=== PATIENT | female | born 1985 | race Caucasian/White ===

== ENCOUNTER → 2016-09-02 | Outpatient (CLI) | payer BC ==
[~2016-09-02] MED LIST: CALC500T3 PO; CETI10TA17 PO; CHOL10003 PO; CHOL500049 PO; CNC1KV IJ; CODE-54 PO; CYAN500T44 PO; CYCL10TA9 PO; HYDR-3812 PO; IBP600T1 PO; LEVO125T6 PO; LEVO5TAB12 PO; LORA10TA72 PO; MAGN400C PO; METF-478 PO; METF500T4 PO; PREN-115 PO; SERT50TA2 PO; SPIR50TA2 PO; THYR97.5 PO
--- NOTE | 2016-09-02 12:00 | Diagnostic Imaging Report ---
PROCEDURE: US Thyroid. TECHNIQUE: Multiple real-time grayscale images were obtained of the thyroid in various projections. INDICATION: Followup thyroid nodule. COMPARISON: 12/23/2015. FINDINGS: The right thyroid lobe is 4.3 x 1.3 x 1.8 cm. The left lobe is 4.3 x 1.3 x 1.7 cm. In the inferior aspect of the right lobe, there is a 1.2 cm hypoechoic solid nodule seen with increased internal vascularity. It is slightly larger compared to the previous exam. Other tiny colloid cysts and a small nodule in the isthmus measuring 0.7 cm seen. IMPRESSION: 1.2 cm nodule in the lower aspect of the right thyroid lobe has enlarged compared to the prior exam. There is a new nodule in the thyroid isthmus also seen measuring 0.6 cm. The findings are likely secondary to multinodular goiter. Followup exams recommended. Dictated by: Dictated on workstation # [id number]
== END ==
LOC: RAD 10:20
PROVIDERS: ATTEND Surgery
DX: E04.1 Nontoxic single thyroid nodule (principal)
CPT/HCPCS: 76536

== ENCOUNTER → 2016-09-15 | Outpatient (CLI) | payer BC ==
[~2016-09-15] VITALS: Ht 160 cm; Wt 94.3 kg
[~2016-09-15] MED LIST changes: +LIDOCAINE 1% INJ 20 ML (XYLOCAINE) VIAL INJ ONE; +LIDOCAINE 1% INJ 20 ML (XYLOCAINE) VIAL ONE
--- NOTE | 2016-09-15 10:22 | Diagnostic Imaging Report ---
EXAMINATION: US-guided fine needle biopsy-thyroid. INDICATION: Right thyroid nodule. CONSENT: Informed consent was obtained from the patient. The risks, benefits, potential complications and alternatives were reviewed and all questions answered to the patient's satisfaction. FINDINGS: 1.2 cm right thyroid nodule enlarged from prior exams. PROCEDURE: After sterile preparation and draping, 1% lidocaine was utilized for local anesthesia. A 25-gauge hypodermic needle is introduced into the right thyroid nodule under live ultrasound guidance. After confirming adequate positioning with saved ultrasound images, multiple passes of fine needle aspiration is performed and repeated 5 times. The patient tolerated the procedure well with no immediate complications. IMPRESSION: Successful US-guided fine needle aspiration biopsy of right thyroid nodule. Dictated by: Dictated on workstation # [id number]
== END ==
LOC: RAD 08:40
PROVIDERS: ATTEND Surgery
DX: E04.1 Nontoxic single thyroid nodule (principal)
CPT/HCPCS: 76942; 88305

== ENCOUNTER 2016-10-21 09:00 | Outpatient (CLI) | payer BC ==
[~2016-10-21] VITALS: Ht 160 cm; Wt 97.5 kg
[~2016-10-21 09:00] MED LIST changes: -CALC500T3 PO; -CETI10TA17 PO; -CHOL500049 PO; -CNC1KV IJ; -CYCL10TA9 PO; -HYDR-3812 PO; -LEVO125T6 PO; -LEVO5TAB12 PO; -LIDOCAINE 1% INJ 20 ML (XYLOCAINE) VIAL INJ ONE; -LIDOCAINE 1% INJ 20 ML (XYLOCAINE) VIAL ONE; -LORA10TA72 PO; -METF-478 PO; -METF500T4 PO; -SERT50TA2 PO; -SPIR50TA2 PO; -THYR97.5 PO
[2016-10-22] MEDS ORDERED: THYR97.5 PO (09:56)
[2016-10-22] MEDS ORDERED: SPIR50TA2 PO (09:56)
[2016-10-22] MEDS ORDERED: CHOL500049 PO (09:56)
[2016-10-22] MEDS ORDERED: LEVO5TAB12 PO (09:56)
[2016-10-22] MEDS ORDERED: CETI10TA17 PO (09:56)
[2016-10-22] MEDS ORDERED: CYCL10TA9 PO (09:56)
[2016-10-22] MEDS ORDERED: SERT50TA2 PO (09:56)
[2016-10-22] MEDS ORDERED: CNC1KV IJ (09:56)
[2016-10-22] MEDS ORDERED: LORA10TA72 PO (09:56)
[2016-10-22] MEDS ORDERED: METF500T4 PO (09:56)
== END 2016-10-21 16:00 ==
LOC: PREOP 09:00
PROVIDERS: ATTEND Surgery
DX: Z01.818 Encounter for other preprocedural examination (principal); E04.1 Nontoxic single thyroid nodule

== ENCOUNTER 2016-10-27 06:11 | Day surgery (SDC) | payer BC ==
--- NOTE | 2016-10-26 08:32 | History & Physicial ---
History of Present Illness History of Present Illness Reason for visit/HPI patient with bilateral thyroid nodules, dominant left nodule measuring 12 mm, confirmed to have atypia on needle aspiration cytology. Therefore, she is here to undergo total thyroidectomy, to establish a definitive diagnosis Date of Admission 10/27/16 I consulted on this patient on 10/26/16 08:26 Attending Physician Tesfaye Sterling MD Admitting Physician Alden Martinez DO Consult Allergies and Home Medications Allergies Coded Allergies: latex (Verified Allergy, Mild, 10/22/16) Swelling Home Medications Cetirizine HCl 10 Mg Tablet 10 MG PO DAILY (Reported) Cholecalciferol (Vitamin D3) 50,000 Unit Capsule 50,000 UNIT PO Q TUESDAY ( Reported) Cyanocobalamin 1,000 Mcg/Ml Inj 1,000 MCG IJ WEEKLY (Reported) Cyclobenzaprine HCl 10 Mg Tablet 10 MG PO DAILY (Reported) Levocetirizine Dihydrochloride 5 Mg Tablet 5 MG PO DAILY (Reported) Loratadine 10 Mg Tab.rapdis 10 MG PO DAILY (Reported) Metformin HCl 500 Mg Tablet 500 MG PO DAILY (Reported) Sertraline HCl 50 Mg Tablet 50 MG PO DAILY (Reported) Spironolactone 50 Mg Tablet 50 MG PO DAILY (Reported) Thyroid,Pork 97.5 Mg Tablet 97.5 MG PO DAILY (Reported) Past Ztglpzg-Ncqyiu-Amhcok Hx Patient Social History Marrital Status: Employed/Student: employed Smoking Status: Never a Smoker Immunizations Up To Date Tetanus Booster (TDap): More than 5yrs Date of Pneumonia Vaccine: Aug 23, 2012 Date of Influenza Vaccine: December 20, 2012 Surgeries HX Surgeries: Yes Surgeries: Appendectomy Respiratory Hx Respiratory Disorders: No Cardiovascular Hx Cardiovascular Disorders: No Neurological Hx Neurological Disorders: No Reproductive System Hx Reproductive Disorders: Yes (PCOS 2007) Sexually Transmitted Disease: No HIV/AIDS: No Female Reproductive Disorders: Polycystic Ovarian Dis Genitourinary Hx Genitourinary Disorders: No Gastrointestinal Hx Gastrointestinal Disorders: No Musculoskeletal Hx Musculoskeletal Disorders: No Endocrine Hx Endocrine Disorders: Yes HEENT HX ENT Disorders: No Cancer Hx Cancer: No Psychosocial Hx Psychiatric Problems: No Integumentary HX Skin/Integumentary Disorder: No Blood Transfusions Hx Blood Disorders: No Adverse Reaction to a Blood Tr: No Family Medical History Significant Family History: Diabetes, Hypertension Family Hx: Hypertension No Family History of: Diabetes mellitus Constitutional: no symptoms reported EENTM: no symptoms reported Respiratory: no symptoms reported Cardiovascular: no symptoms reported Gastrointestinal: see HPI Genitourinary: no symptoms reported Musculoskeletal: no symptoms reported Skin: no symptoms reported Psychiatric/Neurological: No Symptoms Reported Physical Exam Vital Signs Capillary Refill : General Appearance: No Apparent Distress HEENT: TMs Normal Neck: Normal Inspection Respiratory: Lungs Clear Gastrointestinal: Non Tender Soft Extremity: Normal Inspection Neurologic/Psychiatric: Alert Oriented x3 Skin: Warm/Dry Comments thyroid nodule is not palpable. No cervical adenopathy Assessment/Plan Assessment and Plan lady with bilateral thyroid nodules. Dominant left nodule measuring 12 mm. Atypical cytology. Discussed total thyroidectomy with monitoring of the recurrent laryngeal nerve. Expected recovery, postoperative hypocalcemia, transient hoarseness of voice, hematoma etc. discussed. Requirement for postoperative thyroxine replacement discussed. All questions answered and willing to proceed with surgery. Admission Diagnosis bilateral thyroid nodules. Atypical cytology of left thyroid nodule TESFAYE STERLING MD Oct 26, 2016 8:32 am
[~2016-10-27] VITALS: Ht 160 cm; Wt 97.5 kg
[~2016-10-27 06:11] MED LIST changes: +CETI10TA17 PO; +CHOL500049 PO; +CNC1KV IJ; +CYCL10TA9 PO; +LEVO5TAB12 PO; +LORA10TA72 PO; +METF500T4 PO; +SERT50TA2 PO; +SPIR50TA2 PO; +THYR97.5 PO
[2016-10-27] MEDS ORDERED: ceFAZolin 2 GM/50 ML NS 50 ML IV ONE (06:23)
[2016-10-27] MEDS: LACTATED RINGERS 1,000 ML IV PRN ×2 (06:30→09:15)
[2016-10-27 06:55] VITALS: BP 128/84
[2016-10-27 06:55] LABS: MEAN PLATELET VOLUME 10.7 FL (7.4-10.4); RED BLOOD COUNT 4.89 10^6/uL (4.35-5.85); RED CELL DISTRIBUTION WIDTH 12.7 % (10.0-14.5); WHITE BLOOD COUNT 7.3 10^3/uL (4.3-11.0)
[2016-10-27] MEDS ORDERED: CATHETER FLUSH 10 ML SYR IV PRN (07:00)
[2016-10-27] MEDS ORDERED: ceFAZolin 2 GM/NS 50 ML IV ONE (07:00)
[2016-10-27] MEDS ORDERED: LACTATED RINGERS 1,000 ML IV ONE ×2 (07:04→09:26)
[2016-10-27] MEDS ORDERED: LIDOCAINE PF 2% 10 ML (XYLOCAINE) AMP ONE (07:04)
[2016-10-27] MEDS ORDERED: ROCURONIUM 50 MG/5 ML (ZEMURON) VIAL IV ONE (07:04)
[2016-10-27] MEDS ORDERED: proPOfol 200 MG/20 ML (DIPRIVAN) VIAL IV ONE (07:04)
[2016-10-27] MEDS ORDERED: DEXAMETHASONE PF 10 MG/ML (DECADRON) VIAL ONE (07:04)
[2016-10-27] MEDS ORDERED: SUCCINYLCHOLINE INJ 100 MG/5 ML SYR ONE (07:04)
[2016-10-27] MEDS ORDERED: SEVOFLURANE (ULTANE) 15 ML INHAL SOLN ONE ×3 (07:04→10:02)
[2016-10-27] MEDS ORDERED: ONDANSETRON 4 MG/2 ML (SDV) Z0FRAN ONE (07:04)
[2016-10-27] MEDS ORDERED: MIDAZOLAM 2 MG/2 ML (VERSED) VIAL ONE (07:05)
[2016-10-27] MEDS ORDERED: fentaNYL INJECTION 250 MCG/5 ML AMP ONE (07:05)
[2016-10-27] MEDS ORDERED: BUP/EPI 0.25% 1:200,000 (MARCAINE) 30 ML VIAL ONE (07:07)
[2016-10-27] MEDS ORDERED: THROMBIN SPRAY KIT 5,000 UNIT VIAL ONE (07:07)
[2016-10-27] MEDS ORDERED: MIDAZOLAM 2 MG/2 ML (VERSED) VIAL IV ONE (07:30)
[2016-10-27 07:36] LABS: ANION GAP 12 MMOL/L (5-14); BLOOD UREA NITROGEN 11 MG/DL (7-18); BUN/CREATININE RATIO 14; CALCIUM 9.1 MG/DL (8.5-10.1); CARBON DIOXIDE 19 MMOL/L (21-32); CHLORIDE 106 MMOL/L (98-107); CREATININE SERUM 0.77 MG/DL (0.60-1.30); GFR ESTIMATED > 60; GLUCOSE 105 MG/DL (70-105); POTASSIUM 4.2 MMOL/L (3.6-5.0); SODIUM 137 MMOL/L (135-145)
--- NOTE | 2016-10-27 07:50 | Progress Note-Pre Operative ---
Pre-Operative Progress Note H&P Reviewed The H&P was reviewed, patient examined and no changes noted. Date H&P Reviewed: Oct 27, 2016 Time H&P Reviewed: 07:50 Pre-Operative Diagnosis: Bilateral thyroid nodules with atypia TESFAYE STERLING MD Oct 27, 2016 7:50 am
[2016-10-27] MEDS ORDERED: LACTATED RINGERS 1,000 ML IV SCH (10:04)
--- NOTE | 2016-10-27 10:04 | Progress Note-Post Operative ---
Post-Operative Progess Note Pre-Operative Diagnosis Bilateral thyroid nodules with atypia Post-Operative Diagnosis SAME Post-Op Procedure Note Date of Procedure: Oct 27, 2016 Name of Procedure: total thyroidectomy Intraoperative nerve monitoring Anesthesia Type Gen. Estimated blood loss (mL): 25 mL Specimen(s) collected both lobes of the thyroid TESFAYE STERLING MD Oct 27, 2016 10:04 am
[2016-10-27] MEDS ORDERED: HYDR-3812 PO (10:07)
[2016-10-27] MEDS ORDERED: LEVO125T6 PO (10:08)
--- NOTE | 2016-10-27 10:09 | Discharge Inst-Simple/Standard ---
Discharge Inst-Standard Discharge Medications New, Converted or Re-Newed RX: RX on Chart Patient Instructions/Follow Up Plan of Care/Instructions/FU: dressings off and temperature follow-up in 3 weeks. Activity as Tolerated: Yes Discharge Diet: No Restrictions TESFAYE STERLING MD Oct 27, 2016 10:09 am
[2016-10-27] MEDS ORDERED: ONDANSETRON 4 MG/2 ML (SDV) Z0FRAN IVP PRN ×2 (10:15→10:30)
[2016-10-27] MEDS ORDERED: MEPERIDINE (DEMEROL) INJ 50 MG/ML IVP PRN (10:30)
[2016-10-27] MEDS ORDERED: morphine INJ 10 MG/ML 1ML (SYR OR VIAL) IVP PRN (10:30)
[2016-10-27] MEDS: fentaNYL INJECTION 100 MCG/2 ML AMP IVP PRN ×2 (11:53→13:33)
[2016-10-27 12:00] VITALS: BP 142/89
--- NOTE | 2016-10-27 14:41 | OPERATIVE REPORT ---
PROCEDURE PHYSICIAN: TESFAYE STERLING DATE OF PROCEDURE: 10/27/2016 PREOPERATIVE DIAGNOSIS: Bilateral thyroid nodules with atypia. POSTOPERATIVE DIAGNOSIS: Bilateral thyroid nodules with atypia. OPERATION: 1. Total thyroidectomy. 2. Intraoperative nerve monitoring. SURGEON: Donnell ANESTHESIA: General anesthesia. BLOOD LOSS: 25 cc FLUIDS: 1500 mL of crystalloids. TYPE OF WOUND: Type I (clean wound). INDICATION FOR THE PROCEDURE: This lady has been followed up regarding bilateral thyroid nodules with a dominant right thyroid nodule. Due to increase in the size of the right thyroid nodule, a needle biopsy was performed. It revealed atypia and therefore, it was felt reasonable to achieve definitive histologic diagnosis by way of total thyroidectomy. Intraoperative monitoring of the recurrent laryngeal nerve was also scheduled. An informed consent was obtained after reviewing the operative details and complications of postoperative hoarseness of voice, hypocalcemia and hematoma. DESCRIPTION OF PROCEDURE: She was placed supine on the operative table and general anesthesia induced using an endotracheal tube. 2 grams of Ancef were administered intravenously as prophylaxis against wound infection. Sequential compression devices were placed around her legs, to minimize the risk of venous flow. Her neck and upper chest were prepared and draped in the usual sterile manner. Preemptive analgesia was established using 0.25% Marcaine with epinephrine. A 4 cm transverse incision was made along the skin crease of the neck and platysma incised transversely. Flaps were raised superiorly to the level of the thyroid cartilage and inferiorly to the sternal notch. Cervical fascia was then incised vertically and the strap muscles were retracted laterally. I began the dissection on the left side. The lobe was retracted medially and both parathyroid glands were easily identified, being preserved with their blood supply. Recurrent laryngeal nerve was found by conventional visual inspection and intermittent nerve stimulation technique. Superior artery was then divided between 0 silk sutures, reinforced with a Ligaclip. The isthmus was then divided using harmonic scalpel. Branches of the inferior thyroid artery were controlled using a combination of Ligaclips and minimal use of Harmonic scalpel. Left lobe with the isthmus was then sent separately for histologic examination. On the right side a similar dissection was performed. There was a distinct middle thyroid vein, which was controlled using harmonic scalpel. Recurrent laryngeal nerve was found in its conventional position and protected using constant visual inspection and intermittent nerve stimulation technique. Both parathyroids were also identified and preserved along with their blood supply. The right lobe was then excised and sent separately for histologic examination. We had the anesthesiologist conduct Valsalva maneuver, looking for any venous bleeding. There was not any. Gelfoam, soaked in thrombin solution was then placed along the tracheoesophageal groove, to optimize hemostasis. Neck was then flexed in preparation for closure. Cervical fascia was approximated using 3-0 Vicryl and platysma using the same material. The skin was closed using 4-0 Vicryl, in a subcuticular fashion. She tolerated the procedure well, was extubated in the operating room and taken to the recovery room in a stable condition. Clyde, sponges, and instruments were correct at the end of the operation. Job ID: [id number] Dictated Date: 10/27/2016 10:00:05 Learning Center Coordinator Date: 10/27/2016 14:32:31 / negin ROPER
[2016-10-27] MEDS ORDERED: FLU TRIvalent (5 YOA+) 2016-17 (AFLURIA) 0.5 ML IM ONE (14:45)
[2016-10-27] MEDS: HYDROcodone/APAP 5 MG/325 MG (LORTAB) TAB PO PRN ×2 (15:55→20:04)
[2016-10-27 16:38] VITALS: BP 122/79
[2016-10-27 20:17] VITALS: BP 111/66
[2016-10-28] VITALS: BP 111/61
[2016-10-28] MEDS: HYDROcodone/APAP 5 MG/325 MG (LORTAB) TAB PO PRN ×2 (01:00→06:07)
[2016-10-28 04:00] VITALS: BP 103/63
[2016-10-28] MEDS ORDERED: LEVOTHYROXINE 125 MCG (LEVOTHROID) TABLET PO NR (06:00)
[2016-10-28] MEDS ORDERED: CALCIUM CARB + VIT D 600 MG (CALCARB + D) TAB PO SCH (07:00)
[2016-10-28 08:00] VITALS: BP 103/57
[2016-10-28] MEDS ORDERED: LEVO5TAB12 PO (08:36)
[2016-10-28] MEDS ORDERED: METF-478 PO (08:36)
[2016-10-28 09:57] LABS: ANION GAP 13 MMOL/L (5-14); BLOOD UREA NITROGEN 8 MG/DL (7-18); BUN/CREATININE RATIO 10; CALCIUM 8.1 MG/DL (8.5-10.1); CARBON DIOXIDE 26 MMOL/L (21-32); CHLORIDE 100 MMOL/L (98-107); GFR ESTIMATED > 60; GLUCOSE 147 MG/DL (70-105); POTASSIUM 3.6 MMOL/L (3.6-5.0); SODIUM 139 MMOL/L (135-145)
--- NOTE | 2016-10-28 12:02 | Progress Note-Standard ---
Standard Progress Note Progress Notes/Assess & Plan Progress/Assessment & Plan 10/28/16:seen earlier. Vital signs stable. Calcium 8.1 with no symptoms. Incision dry. Could be discharged home. Vocal cord function intact Final Diagnosis bilateral thyroid nodules with atypia TESFAYE STERLING MD Oct 28, 2016 12:02 pm
== END 2016-10-28 11:20 | disposition home or self-care (01) ==
LOC: SDC 06:11 → 4TH 11:50 → SDC 10-28 11:20
PROVIDERS: ATTEND Surgery
DX: E04.1 Nontoxic single thyroid nodule (principal)
CPT/HCPCS: 36415; 80048; 84703; 85027; 87081; 88307

== ENCOUNTER 2016-10-30 15:54 | Emergency (ER) | payer BC ==
[~2016-10-30] VITALS: Ht 160 cm; Wt 97.5 kg
[~2016-10-30 15:54] MED LIST changes: +HYDR-3812 PO; +LEVO125T6 PO; +METF-478 PO
--- NOTE | 2016-10-30 16:02 | ED General ---
General Stated Complaint: BODY TINGLING, LOW FEVER, STIFFNESS Source of Information: Patient Exam Limitations: No Limitations History of Present Illness Time Seen by Provider: 16:01 Initial Comments TO ER with c/o body stiffness, tingling all over. This began this morning. She is about 3 days post thyroidectomy by Dr Sterling and is concerned about hypocalcemia. No cough or shortness of breath or dysuria. She states that her fevers never got above 99. Timing/Duration: 4-6 Hours Severity: Moderate Associated Systoms: No Chest Pain, No Cough, No Diaphoresis, No Fever/Chills Allergies and Home Medications Allergies Coded Allergies: latex (Verified Allergy, Mild, 10/22/16) Swelling Home Medications Calcium Carbonate 500 Mg Tablet #60 1,000 MG PO Q6H Prescribed by: MERRILL VALENCIA on 10/30/16 1728 Cholecalciferol (Vitamin D3) 50,000 Unit Capsule 50,000 UNIT PO Q TUESDAY ( Reported) Cyanocobalamin 1,000 Mcg/Ml Inj 1,000 MCG IJ WEEKLY (Reported) Cyclobenzaprine HCl 10 Mg Tablet 10 MG PO HS (Reported) Hydrocodone/Acetaminophen 1 Each Tablet #30 1-2 TAB PO 4-6HR PRN PRN PAIN Prescribed by: TESFAYE STERLING on 10/27/16 1007 Levocetirizine Dihydrochloride 5 Mg Tablet 5 MG PO DAILY (Reported) Levothyroxine Sodium 125 Mcg Tablet #30 125 MCG PO DAILY Prescribed by: TESFAYE STERLING on 10/27/16 1008 Metformin HCl 500 Mg Tab.er.24 500 MG PO DAILY (Reported) Sertraline HCl 50 Mg Tablet 50 MG PO DAILY (Reported) Spironolactone 50 Mg Tablet 50-100 MG PO DAILY (Reported) TAKES 1-2 OF A (50 MG) TABLET Constitutional: see HPI EENTM: see HPI Respiratory: no symptoms reported Cardiovascular: no symptoms reported Genitourinary: no symptoms reported Musculoskeletal: see HPI other (stiffness) Skin: no symptoms reported Psychiatric/Neurological: See HPI Other (body tingling) Hematologic/Lymphatic: No Symptoms Reported Past Ivkzzcr-Lfugzv-Kxrpwz Hx Patient Social History Recent Foreign Travel: No Contact w/Someone Who Travel: No Recent Hopitalizations: No Immunizations Up To Date Tetanus Booster (TDap): More than 5yrs PED Vaccines UTD: Yes Date of Pneumonia Vaccine: Aug 23, 2012 Date of Influenza Vaccine: December 20, 2012 Seasonal Allergies Seasonal Allergies: Yes Surgeries HX Surgeries: Yes (BILAT CARPAL TUNNEL) Surgeries: Appendectomy Respiratory Hx Respiratory Disorders: No Cardiovascular Hx Cardiac Disorders: No Neurological Hx Neurological Disorders: Yes Neurological Disorders: Headaches /Migraines Reproductive System Hx Reproductive Disorders: No Sexually Transmitted Disease: No HIV/AIDS: No Female Reproductive Disorders: Polycystic Ovarian Dis Genitourinary Hx Genitourinary Disorders: No Gastrointestinal Hx Gastrointestinal Disorders: No Musculoskeletal Hx Musculoskeletal Disorders: No Endocrine Hx Endocrine Disorders: Yes HEENT HX ENT Disorders: No Loss of Vision: Denies Hearing Impairment: Denies Cancer Hx Cancer: No Psychosocial Hx Psychiatric Problems: No Integumentary HX Skin/Integumentary Disorder: No Blood Transfusions Hx Blood Disorders: No Adverse Reaction to a Blood Tr: No (N/A) Family Medical History Significant Family History: Diabetes, Hypertension Family Medial History: Hypertension No Family History of: Diabetes mellitus Physical Exam Vital Signs Vital Sign - Last 12Hours 10/30/16 15:55 Temp 96.4 Pulse 109 Resp 18 B/P 130/92 Pulse Ox 97 Capillary Refill : General Appearance: No Apparent Distress WD/WN Eyes: Bilateral Eye EOMI, Bilateral Eye Normal Inspection, Bilateral Eye PERRL HEENT: PERRL/EOMI TMs Normal Neck: Full Range of Motion Normal Inspection Respiratory: Normal Breath Sounds No Accessory Muscle Use No Respiratory Distress Cardiovascular: Regular Rate, Rhythm Normal Peripheral Pulses Gastrointestinal: Normal Bowel Sounds Non Tender Soft Extremity: Normal Capillary Refill No Calf Tenderness Neurologic/Psychiatric: Alert Oriented x3 No Motor/Sensory Deficits Skin: Normal Color Warm/Dry Focused Exam Lactic Acid Level Laboratory Tests Test 10/30/16 16:20 10/30/16 16:47 Alanine Aminotransferase (ALT/SGPT) 53U/L (0-55) Albumin 4.0G/DL (3.2-4.5) Alkaline Phosphatase 60U/L (40-136) Anion Gap 12MMOL/L (5-14) Aspartate Amino Transf (AST/SGOT) 28U/L (5-34) BUN/Creatinine Ratio 13 Blood Urea Nitrogen 10MG/DL (7-18) Calcium Level 7.6MG/DL (8.5-10.1) L Carbon Dioxide Level 25MMOL/L (21-32) Chloride Level 102MMOL/L (98-107) Creatinine 0.77MG/DL (0.60-1.30) Estimat Glomerular Filtration Rate > 60 Free Thyroxine 1.25NG/DL (0.70-1.48) Glucose Level 97MG/DL (70-105) Magnesium Level 1.8MG/DL (1.8-2.4) Potassium Level 4.1MMOL/L (3.6-5.0) Sodium Level 139MMOL/L (135-145) Thyroid Stimulating Hormone (TSH) 0.11UIU/ML (0.35-4.94) L Total Bilirubin 0.3MG/DL (0.1-1.0) Total Protein 7.4G/DL (6.4-8.2) Progress/Results/Core Measures Results/Orders Lab Results Laboratory Tests Test 10/30/16 16:20 10/30/16 16:22 10/30/16 16:47 Range/Units Alanine Aminotransferase (ALT/SGPT) 53 0-55 U/L Albumin 4.0 3.2-4.5 G/DL Alkaline Phosphatase 60 40-136 U/L Anion Gap 12 5-14 MMOL/L Aspartate Amino Transf (AST/SGOT) 28 5-34 U/L BUN/Creatinine Ratio 13 Basophils # (Auto) 0.0 0.0-0.1 10^3/uL Basophils (%) (Auto) 0 0-10 % Blood Urea Nitrogen 10 7-18 MG/DL Calcium Level 7.6 L 8.5-10.1 MG/DL Carbon Dioxide Level 25 21-32 MMOL/L Chloride Level 102 98-107 MMOL/L Creatinine 0.77 0.60-1.30 MG/DL Eosinophils # (Auto) 0.6 H 0.0-0.3 10^3/uL Eosinophils (%) (Auto) 6 0-10 % Estimat Glomerular Filtration Rate > 60 Free Thyroxine 1.25 0.70-1.48 NG/DL Glucose Level 97 70-105 MG/DL Hematocrit 39 35-52 % Hemoglobin 13.7 11.5-16.0 G/DL Lymphocytes # (Auto) 3.2 1.0-4.0 X 10^3 Lymphocytes (%) (Auto) 34 12-44 % Magnesium Level 1.8 1.8-2.4 MG/DL Mean Corpuscular Hemoglobin 31 25-34 PG Mean Corpuscular Hemoglobin Concent 35 32-36 G/DL Mean Corpuscular Volume 88 80-99 FL Mean Platelet Volume 11.3 H 7.4-10.4 FL Monocytes # (Auto) 0.7 0.0-1.0 X 10^3 Monocytes (%) (Auto) 8 0-12 % Neutrophils # (Auto) 4.9 1.8-7.8 X 10^3 Neutrophils (%) (Auto) 52 42-75 % Platelet Count 194 130-400 10^3/uL Potassium Level 4.1 3.6-5.0 MMOL/L Red Blood Count 4.40 4.35-5.85 10^6/uL Red Cell Distribution Width 12.3 10.0-14.5 % Sodium Level 139 135-145 MMOL/L Thyroid Stimulating Hormone (TSH) 0.11 L 0.35-4.94 UIU/ML Total Bilirubin 0.3 0.1-1.0 MG/DL Total Protein 7.4 6.4-8.2 G/DL White Blood Count 9.4 4.3-11.0 10^3/uL Urine Bacteria FEW H /HPF Urine Bilirubin NEGATIVE NEGATIVE Urine Casts NONE /LPF Urine Clarity CLEAR Urine Color YELLOW Urine Crystals NONE /LPF Urine Culture Indicated NO Urine Glucose (UA) NEGATIVE NEGATIVE Urine Ketones NEGATIVE NEGATIVE Urine Leukocyte Esterase 1+ H NEGATIVE Urine Mucus NEGATIVE /LPF Urine Nitrite NEGATIVE NEGATIVE Urine Protein NEGATIVE NEGATIVE Urine RBC NONE /HPF Urine RBC (Auto) NEGATIVE NEGATIVE Urine Specific R[place]child 1.015 L 1.016-1.022 Urine Squamous Epithelial Cells 10-25 H /HPF Urine Urobilinogen NORMAL NORMAL MG/DL Urine WBC 2-5 /HPF Urine pH 7 5-9 My Orders Orders-MERRILL VALENCIA [employer]AD[employer] Cbc With Automated Diff (10/30/16 15:59) Comprehensive Metabolic Panel (10/30/16 15:59) Ionized Calcium (10/30/16 15:59) Thyroid Stimulating Hormone (10/30/16 15:59) Free T4 (Free Thyroxine) (10/30/16 15:59) Saline Lock/Iv-Start (10/30/16 15:59) Ekg Tracing (10/30/16 15:59) Ua Culture If Indicated (10/30/16 15:59) Magnesium (10/30/16 16:14) Calcium Carbonate Tablet (Calcarb 600 Ta (10/30/16 17:15) Medications Given in ED Current Medications Medications Dose Ordered Sig/Cadence Route Start Time Stop Time Status Last Admin Dose Admin Calcium Carbonate 2,400 mg ONCE ONCE PO 10/30/16 17:15 10/30/16 17:16 DC 10/30/16 17:26 2,400 MG Vital Signs/I&O Vital Sign - Last 12Hours 10/30/16 15:55 Temp 96.4 Pulse 109 Resp 18 B/P 130/92 Pulse Ox 97 Progress Note : Progress Note 1714-given the absence of seizures, tetany, carpopedal spasms, QT prolongation and a calcium level greater than 7.5, we will supplement orally with calcium carbonate 2000 mg daily. This will total approximately 8-10 tums tablets with each 500 mg calcium carbonate tablets containing 200 mg of elemental calcium. Departure Impression Impression: Primary Impression: post thyroidectomy hypocalcemia Disposition: HOME, SELF-CARE Condition: Stable Departure-Patient Inst. Decision time for Depature: 17:17 Referrals: MAURICIO KEATING DO (PCP) Primary Care Physician KIYA KEATING DNP (Family) Primary Care Physician TESFAYE STERLING MD Patient Instructions: Hypocalcemia Add. Discharge Instructions: 1. You should take the calcium carbonate prescription as directed 2. Return to ER for any worsening 3. Call Dr. Sterling on Tuesday for further advice Scripts Calcium Carbonate 500 Mg Tablet1,000 Mg PO Q6H #60 TAB Prov:MERRILL VALENCIA APRN 10/30/16 Copy Copies To 1: TESFAYE STERLING MD, PETER J APRN Oct 30, 2016 16:02
[2016-10-30 16:26] LABS: BASOPHILS % (AUTO) 0 % (0-10); EOSINOPHILS # (AUTO) 0.6 10^3/uL (0.0-0.3); EOSINOPHILS % (AUTO) 6 % (0-10); LYMPHOCYTES # (AUTO) 3.2 X 10^3 (1.0-4.0); LYMPHOCYTES % (AUTO) 34 % (12-44); MEAN CORPUSCULAR HEMOGLOBIN 31 PG (25-34); MEAN CORPUSCULAR HGB CONC 35 G/DL (32-36); MEAN CORPUSCULAR VOLUME 88 FL (80-99); MEAN PLATELET VOLUME 11.3 FL (7.4-10.4); MONOCYTES # (AUTO) 0.7 X 10^3 (0.0-1.0); MONOCYTES % (AUTO) 8 % (0-12); NEUTROPHILS # (AUTO) 4.9 X 10^3 (1.8-7.8); NEUTROPHILS % (AUTO) 52 % (42-75); PLATELET COUNT 194 10^3/uL (130-400); RED CELL DISTRIBUTION WIDTH 12.3 % (10.0-14.5); WHITE BLOOD COUNT 9.4 10^3/uL (4.3-11.0)
[2016-10-30 16:30] LABS: BILIRUBIN,URINE NEGATIVE (NEGATIVE); KETONES,URINE NEGATIVE (NEGATIVE); LEUKOCYTE ESTERASE ,URINE 1+ (NEGATIVE); NITRITE,URINE NEGATIVE (NEGATIVE); PH,URINE 7 (5-9); PROTEIN,URINE NEGATIVE (NEGATIVE); UROBILINOGEN,URINE NORMAL (NORMAL)
[2016-10-30 16:46] LABS: ALANINE AMINOTRANSFERASE 53 U/L (0-55); ANION GAP 12 MMOL/L (5-14); ASPARTATE AMINO TRANSFERASE 28 U/L (5-34); BILIRUBIN,TOTAL 0.3 MG/DL (0.1-1.0); BLOOD UREA NITROGEN 10 MG/DL (7-18); BUN/CREATININE RATIO 13; CALCIUM 7.6 MG/DL (8.5-10.1); CARBON DIOXIDE 25 MMOL/L (21-32); CHLORIDE 102 MMOL/L (98-107); CREATININE SERUM 0.77 MG/DL (0.60-1.30); GFR ESTIMATED > 60; GLUCOSE 97 MG/DL (70-105); MAGNESIUM 1.8 MG/DL (1.8-2.4); POTASSIUM 4.1 MMOL/L (3.6-5.0); SODIUM 139 MMOL/L (135-145); TOTAL PROTEIN 7.4 G/DL (6.4-8.2)
[2016-10-30 17:06] LABS: THYROID STIMULATING HORMONE 0.11 UIU/ML (0.35-4.94)
[2016-10-30] MEDS ORDERED: CALCIUM CARBONATE 600 MG (CALCARB) TAB PO ONE (17:15)
[2016-10-30] MEDS ORDERED: CALC500T3 PO (17:28)
[2016-10-30 17:34] VITALS: BP 130/92
[2016-10-31 18:53] LABS: CALCIUM IONIZED 0.93 mmol/L (1.16-1.32); CORRECTED IONIZED CALCIUM 0.93 mmol/L (1.16-1.32)
[2016-11-01 07:53] LABS: CALCIUM PH 7.4
== END 2016-10-30 17:34 | disposition home or self-care (01) ==
LOC: EDUNIT# 15:54 → ER 15:56
DX: E83.51 Hypocalcemia (principal); E89.0 Postprocedural hypothyroidism; E11.9 Type 2 diabetes mellitus without complications; Z79.84 Long term (current) use of oral hypoglycemic drugs; Z79.899 Other long term (current) drug therapy
CPT/HCPCS: 36415; 80053; 81000; 82330; 83735; 84439; 84443; 85025; 93005

== ENCOUNTER → 2017-03-10 | Outpatient (CLI) | payer BC ==
[~2017-03-10] MED LIST changes: +CALC500T3 PO
--- NOTE | 2017-03-10 12:47 | Diagnostic Imaging Report ---
PROCEDURE: CT sinuses without contrast TECHNIQUE: Multiple contiguous axial images were obtained through the sinuses without the use of intravenous contrast. Coronal and sagittal reformations were then performed. INDICATION: Chronic sinusitis. FINDINGS: The paranasal sinuses demonstrate mild mucosal thickening along the anterior ethmoidal cells on the left side and mucosal thickening in the left frontal sinus as well which is very small. The right frontal sinus is also very small with no mucosal thickening or obliteration. The maxillary sinuses and the sphenoidal sinuses aerated. The mastoid air cells and the middle ear cavities are aerated. The nasal cavity demonstrates mild mucosa thickening along the inferior turbinates more on the right side with no significant narrowing of the nasal passages. The soft tissues structures and orbits around the sinuses appear grossly unremarkable. IMPRESSION: Mild sinus disease involving the anterior left ethmoidal air cells and the left frontal sinus. Dictated by: Dictated on workstation # [id number]
== END ==
LOC: RAD 12:01
PROVIDERS: ATTEND Nurse Practitioner Family
DX: J32.9 Chronic sinusitis, unspecified (principal)
CPT/HCPCS: 70486

== ENCOUNTER 2018-04-02 21:56 | Emergency (ER) | payer BC ==
[~2018-04-02] VITALS: Ht 160 cm; Wt 104.3 kg
[~2018-04-02 21:56] MED LIST changes: +ACHD5005 PO; -HYDR-3812 PO; -METF500T4 PO; +METF500T5 PO; -SPIR50TA2 PO; +SPIR50TA4 PO
--- OUTSIDE RECORDS SUMMARY | 2018-04-02 22:01 | XMS REPORT ---
Author HANS Montes [facility] [employer] Address Unknown Phone Unavailable Care Team Providers Care Ceramic Tile Mechanic Name Role Phone HANS DHILLON Unavailable Allergies No Known Allergies Problems Problem Type Condition Code Onset Dates Condition Status Assessment Encounter for PPD test Z11.1 Active Assessment Visit for TB skin test Z11.1 Active Medications No Known Medications Procedures Procedure Coding System Code Date TB INTRADERMAL TEST CPT-4 05856 Jun 05, 2015 Results Name Result Date Reference Range Unit Abnormality Flag TB INTRADERMAL Summary Purpose [employer] Submission
--- OUTSIDE RECORDS SUMMARY | 2018-04-02 22:01 | XMS REPORT ---
Author Author ELEONORA FLORES Organization [employer] Address Unknown Phone Unavailable Care Team Providers Care History Faculty Member Name Role Phone ELEONORA FLORES CP Unavailable Allergies, Adverse Reactions, Alerts Substance Reaction Event Type N.K.D.A. Info Not Available Non Drug Allergy Problems Problem Type Condition Code Onset Dates Condition Status Assessment Physical exam Z00.00 Active Medications Medication Code System Code Instructions Start Date End Date Status Dosage Glucophage [facility] [address]-64 500 MG Orally Once a day 1 tablet with meals Vitamin B-[address] [facility] [address]-42 2500 MCG Sublingual not defined Vitamin D [facility] [id number] 1000 UNIT Orally Once a day 1 capsule Procedures Procedure Coding System Code Date Preventive Care New Pt. Age 18-39 CPT-4 70610 Jun 09, 2015 Vital Signs Date/Time: Jun 09, 2015 Temperature 96.0 F Weight 200 lbs Height 63 in BMI 35.42 Index Blood Pressure Diastolic 68 mmHg Blood Pressure Systolic 104 mmHg Cardiac Monitoring Heart Rate 84 bpm Results No Known Results Summary Purpose [employer] Submission
--- OUTSIDE RECORDS SUMMARY | 2018-04-02 22:02 | XMS REPORT | Continuity of Care Document ---
Author Author [facility] Organization [facility] Address Unknown Phone Unavailable Allergies Active Description Code Type Severity Reaction Onset Reported/Identified Relationship to Patient Clinical Status Yes latex [id number] Drug Allergy Mild N/A 10/22/2016 Medications There is no data. Problems Date Dx Coded Attending Type Code Diagnosis Diagnosed By 12/20/2012 IZZY LACKEY DO Ot 650 NORMAL DELIVERY 12/20/2012 IZZY LACKEY DO Ot V06.1 [id number], COMBINED [ 12/20/2012 IZZY LACKEY DO Ot V27.0 DELIVER-SINGLE LIVEBORN 09/17/2014 JOSE ENRIQUE LECHUGA DO Ot 644.13 THREAT LABOR NEC-ANTEPAR 09/17/2014 JOSE ENRIQUE LECHUGA DO Ot 648.73 BONE DISORDER-ANTEPARTUM 09/17/2014 JOSE ENRIQUE LECHUGA DO Ot 724.5 BACKACHE NOS 10/02/2014 JOSE ENRIQUE LECHUGA DO Ot 256.4 POLYCYSTIC OVARIES 10/02/2014 JOSE ENRIQUE LECHUGA DO Ot 278.00 OBESITY, NOS 10/02/2014 JOSE ENRIQUE LECHUGA DO Ot 646.81 PREG COMPL NEC-DELIVERED 10/02/2014 JOSE ENRIQUE LECHUGA DO Ot 648.81 ABN GLUCOSE MOY-DELIV 10/02/2014 JOSE ENRIQUE LECHUGA DO Ot 649.11 OBESITY COMP PREG/CHILDBIRTH/PUERPERIUM, 10/02/2014 JOSE ENRIQUE LECHUGA DO Ot V06.1 [id number], COMBINED [ 10/02/2014 JOSE ENRIQUE LECHUGA DO Ot V27.0 DELIVER-SINGLE LIVEBORN 10/02/2014 JOSE ENRIQUE LECHUGA DO Ot V85.36 BODY MASS INDEX 36.0-36.9, ADULT 12/06/2014 KIYA KEATING CARTON PACKAGING MACHINE OPERATOR Ot 241.0 12/20/2014 KIYA KEATING CARTON PACKAGING MACHINE OPERATOR Ot 241.0 12/23/2015 KEATING, KIYA L CARTON PACKAGING MACHINE OPERATOR Ot 241.0 NONTOX UNINODULAR GOITER 12/24/2015 KIYA KEATING L CARTON PACKAGING MACHINE OPERATOR Ot E04.2 NONTOXIC MULTINODULAR GOITER 12/24/2015 KIYA KEATING L CARTON PACKAGING MACHINE OPERATOR Ot E04.2 NONTOXIC MULTINODULAR GOITER 01/02/2016 KIYA KEATING CARTON PACKAGING MACHINE OPERATOR Ot E04.2 NONTOXIC MULTINODULAR GOITER 08/31/2016 KIYA KEATING CARTON PACKAGING MACHINE OPERATOR Ot 241.0 NONTOX UNINODULAR GOITER 08/31/2016 KIYA KEATING L CARTON PACKAGING MACHINE OPERATOR Ot E04.2 NONTOXIC MULTINODULAR GOITER 09/03/2016 ASHER CALVIN, TESFAYE M Ot E04.1 NONTOXIC SINGLE THYROID NODULE 09/16/2016 ASHER CALVIN, TESFAYE M Ot E04.1 NONTOXIC SINGLE THYROID NODULE 09/16/2016 ASHER CALVIN, TESFAYE M Ot E04.1 NONTOXIC SINGLE THYROID NODULE 09/17/2016 ASHER CALVIN, TESFAYE M Ot E04.1 NONTOXIC SINGLE THYROID NODULE 09/29/2016 ASHER CALVIN, TESFAYE M Ot E04.1 NONTOXIC SINGLE THYROID NODULE 10/21/2016 ASHER CALVIN, TESFAYE M Ot E04.1 NONTOXIC SINGLE THYROID NODULE 10/21/2016 ASHER CALVIN, TESFAYE M Ot Z01.818 ENCOUNTER FOR OTHER PREPROCEDURAL EXAMIN 10/28/2016 ASHER CALVIN, TESFAYE M Ot E04.1 NONTOXIC SINGLE THYROID NODULE 10/28/2016 ASHER CALVIN, TESFAYE M Ot E04.1 NONTOXIC SINGLE THYROID NODULE 10/30/2016 MERRILL VALENCIA APRN Ot E11.9 TYPE 2 DIABETES MELLITUS WITHOUT COMPLIC 10/30/2016 MERRILL VALENCIA STITCHDOWN THREAD LASTER Ot E83.51 HYPOCALCEMIA 10/30/2016 MERRILL VALENCIA STITCHDOWN THREAD LASTER Ot E89.0 POSTPROCEDURAL HYPOTHYROIDISM 10/30/2016 MERRILL VALENCIA STITCHDOWN THREAD LASTER Ot R20.2 PARESTHESIA OF SKIN 10/30/2016 MERRILL VALENCIA STITCHDOWN THREAD LASTER Ot Z79.84 SENIOR LIVING (CURRENT) USE OF ORAL HYPOGLYC 10/30/2016 MERRILL VALENCIA STITCHDOWN THREAD LASTER Ot Z79.899 OTHER TEACHER HEARING IMPAIRED (CURRENT) DRUG THERAPY 11/01/2016 MERRILL VALENCIA STITCHDOWN THREAD LASTER Ot E11.9 TYPE 2 DIABETES MELLITUS WITHOUT COMPLIC 11/01/2016 MERRILL VALENCIA STITCHDOWN THREAD LASTER Ot E83.51 HYPOCALCEMIA 11/01/2016 MERRILL VALENCIA STITCHDOWN THREAD LASTER Ot E89.0 POSTPROCEDURAL HYPOTHYROIDISM 11/01/2016 MERRILL VALENCIA STITCHDOWN THREAD LASTER Ot R20.2 PARESTHESIA OF SKIN 11/01/2016 MERRILL VALENCIA STITCHDOWN THREAD LASTER Ot Z79.84 TEACHER HEARING IMPAIRED (CURRENT) USE OF ORAL HYPOGLYC 11/01/2016 MERRILL VALENCIA STITCHDOWN THREAD LASTER Ot Z79.899 OTHER TEACHER HEARING IMPAIRED (CURRENT) DRUG THERAPY 11/02/2016 ASHER CALVIN, TESFAYE Nuñez Ot E04.1 NONTOXIC SINGLE THYROID NODULE 11/04/2016 ASHER CALVIN, TESFAYE Nuñez Ot E04.1 NONTOXIC SINGLE THYROID NODULE 11/04/2016 ASHER CALVIN, TESFAYE Nuñez Ot Z01.818 ENCOUNTER FOR OTHER PREPROCEDURAL EXAMIN 11/10/2016 ASHER CALVIN, TESFAYE Nuñez Ot E04.1 NONTOXIC SINGLE THYROID NODULE 03/11/2017 KIYA KEATING L CARTON PACKAGING MACHINE OPERATOR Ot J32.9 CHRONIC SINUSITIS, UNSPECIFIED 03/15/2017 KEATINGCHARISSEKIYA L CARTON PACKAGING MACHINE OPERATOR Ot J32.9 CHRONIC SINUSITIS, UNSPECIFIED 03/15/2017 KEAITNG, KIYA L CARTON PACKAGING MACHINE OPERATOR Ot J32.9 CHRONIC SINUSITIS, UNSPECIFIED 03/15/2017 KEATING KIYA L CARTON PACKAGING MACHINE OPERATOR Ot J32.9 CHRONIC SINUSITIS, UNSPECIFIED 03/23/2017 KEATINGCHARISSEKIYA L CARTON PACKAGING MACHINE OPERATOR Ot J32.9 CHRONIC SINUSITIS, UNSPECIFIED 01/30/2018 ASHER CALVIN, TESFAYE Nuñez Ot E04.1 NONTOXIC SINGLE THYROID NODULE 01/30/2018 TESFAYE STERLING MD Ot E04.1 NONTOXIC SINGLE THYROID NODULE 01/30/2018 KIYA KEATING L CARTON PACKAGING MACHINE OPERATOR Ot J32.9 CHRONIC SINUSITIS, UNSPECIFIED Procedures Code Description Performed By Performed On 73.59 MANUAL ASSIST DELIV NEC 12/18/2012 73.59 MANUAL ASSIST DELIV NEC 09/30/2014 Results Test Result Range Urine beta human chorionic gonadotropin (hCG) measurement - 10/27/16 06:20 Urine beta human chorionic gonadotropin (hCG) measurement NEGATIVE NEGATIVE Automated blood complete blood count (hemogram) panel - 10/27/16 06:40 Blood leukocytes automated count (number/volume) 7.3 10*3/uL 4.3-11.0 Blood erythrocytes automated count (number/volume) 4.89 10*6/uL 4.35-5.85 Venous blood hemoglobin measurement (mass/volume) 15.3 g/dL 11.5-16.0 Blood hematocrit (volume fraction) 43 % 35-52 Automated erythrocyte mean corpuscular volume 88 [foz_us] 80-99 Automated erythrocyte mean corpuscular hemoglobin (mass per erythrocyte) 31 pg 25-34 Automated erythrocyte mean corpuscular hemoglobin concentration measurement ( mass/volume) 36 g/dL 32-36 Automated erythrocyte distribution width ratio 12.7 % 10.0-14.5 Automated blood platelet count (count/volume) 265 10*3/uL 130-400 Automated blood platelet mean volume measurement 10.7 [foz_us] 7.4-10.4 Methicillin resistant Staphylococcus aureus (MRSA) screening culture - 06:40 Methicillin resistant Staphylococcus aureus (MRSA) screening culture NEG [facility] Whole blood basic metabolic panel - 10/27/16 07:08 Serum or plasma sodium measurement (moles/volume) 137 mmol/L 135-145 Serum or plasma potassium measurement (moles/volume) 4.2 mmol/L 3.6-5.0 Serum or plasma chloride measurement (moles/volume) 106 mmol/L 98-107 Carbon dioxide 19 mmol/L 21-32 Serum or plasma anion gap determination (moles/volume) 12 mmol/L 5-14 Serum or plasma urea nitrogen measurement (mass/volume) 11 mg/dL 7-18 Serum or plasma creatinine measurement (mass/volume) 0.77 mg/dL 0.60-1.30 Serum or plasma urea nitrogen/creatinine mass ratio 14 NRG Serum or plasma creatinine measurement with calculation of estimated glomerular filtration rate > NR Serum or plasma glucose measurement (mass/volume) 105 mg/dL 70-105 Serum or plasma calcium measurement (mass/volume) 9.1 mg/dL 8.5-10.1 Whole blood basic metabolic panel - 10/28/16 09:25 Serum or plasma sodium measurement (moles/volume) 139 mmol/L 135-145 Serum or plasma potassium measurement (moles/volume) 3.6 mmol/L 3.6-5.0 Serum or plasma chloride measurement (moles/volume) 100 mmol/L 98-107 Carbon dioxide 26 mmol/L 21-32 Serum or plasma anion gap determination (moles/volume) 13 mmol/L 5-14 Serum or plasma urea nitrogen measurement (mass/volume) 8 mg/dL 7-18 Serum or plasma creatinine measurement (mass/volume) 0.80 mg/dL 0.60-1.30 Serum or plasma urea nitrogen/creatinine mass ratio 10 NRG Serum or plasma creatinine measurement with calculation of estimated glomerular filtration rate > NRG Serum or plasma glucose measurement (mass/volume) 147 mg/dL 70-105 Serum or plasma calcium measurement (mass/volume) 8.1 mg/dL 8.5-10.1 Complete blood count (CBC) with automated white blood cell (WBC) differential - 10/30/16 16:20 Blood leukocytes automated count (number/volume) 9.4 10*3/uL 4.3-11.0 Blood erythrocytes automated count (number/volume) 4.40 10*6/uL 4.35-5.85 Venous blood hemoglobin measurement (mass/volume) 13.7 g/dL 11.5-16.0 Blood hematocrit (volume fraction) 39 % 35-52 Automated erythrocyte mean corpuscular volume 88 [foz_us] 80-99 Automated erythrocyte mean corpuscular hemoglobin (mass per erythrocyte) 31 pg 25-34 Automated erythrocyte mean corpuscular hemoglobin concentration measurement ( mass/volume) 35 g/dL 32-36 Automated erythrocyte distribution width ratio 12.3 % 10.0-14.5 Automated blood platelet count (count/volume) 194 10*3/uL 130-400 Automated blood platelet mean volume measurement 11.3 [foz_us] 7.4-10.4 Automated blood neutrophils/100 leukocytes 52 % 42-75 Automated blood lymphocytes/100 leukocytes 34 % 12-44 Blood monocytes/100 leukocytes 8 % 0-12 Automated blood eosinophils/100 leukocytes 6 % 0-10 Automated blood basophils/100 leukocytes 0 % 0-10 Blood neutrophils automated count (number/volume) 4.9 10*3 1.8-7.8 Blood lymphocytes automated count (number/volume) 3.2 10*3 1.0-4.0 Blood monocytes automated count (number/volume) 0.7 10*3 0.0-1.0 Automated eosinophil count 0.6 10*3/uL 0.0-0.3 Automated blood basophil count (count/volume) 0.0 10*3/uL 0.0-0.1 Comprehensive metabolic panel - 10/30/16 16:20 Serum or plasma sodium measurement (moles/volume) 139 mmol/L 135-145 Serum or plasma potassium measurement (moles/volume) 4.1 mmol/L 3.6-5.0 Serum or plasma chloride measurement (moles/volume) 102 mmol/L 98-107 Carbon dioxide 25 mmol/L 21-32 Serum or plasma anion gap determination (moles/volume) 12 mmol/L 5-14 Serum or plasma urea nitrogen measurement (mass/volume) 10 mg/dL 7-18 Serum or plasma creatinine measurement (mass/volume) 0.77 mg/dL 0.60-1.30 Serum or plasma urea nitrogen/creatinine mass ratio 13 NRG Serum or plasma creatinine measurement with calculation of estimated glomerular filtration rate > NRG Serum or plasma glucose measurement (mass/volume) 97 mg/dL 70-105 Serum or plasma calcium measurement (mass/volume) 7.6 mg/dL 8.5-10.1 Serum or plasma total bilirubin measurement (mass/volume) 0.3 mg/dL 0.1-1.0 Serum or plasma alkaline phosphatase measurement (enzymatic activity/volume) 60 U/L 40-136 Serum or plasma aspartate aminotransferase measurement (enzymatic activity/ volume) 28 U/L 5-34 Serum or plasma alanine aminotransferase measurement (enzymatic activity/volume ) 53 U/L 0-55 Serum or plasma protein measurement (mass/volume) 7.4 g/dL 6.4-8.2 Serum or plasma albumin measurement (mass/volume) 4.0 g/dL 3.2-4.5 Magnesium - 10/30/16 16:20 Magnesium 1.8 mg/dL 1.8-2.4 THYROID STIMULATING HORMONE - 10/30/16 16:20 THYROID STIMULATING HORMONE 0.11 u[iU]/mL 0.35-4.94 Serum or plasma thyroxine (T4) free measurement (mass/volume) - 10/30/16 16:20 Serum or plasma thyroxine (T4) free measurement (mass/volume) 1.25 ng/dL 0.70-1.48 Complete urinalysis with reflex to culture - 10/30/16 16:22 Urine color determination YELLOW NRG Urine clarity determination CLEAR NRG Urine pH measurement by test strip 7 5-9 Specific gravity of urine by test strip 1.015 1.016- 1.022 Urine protein assay by test strip, semi-quantitative NEGATIVE NEGATIVE Urine glucose detection by automated test strip NEGATIVE NEGATIVE Erythrocytes detection in urine sediment by light microscopy NEGATIVE NEGATIVE Urine ketones detection by automated test strip NEGATIVE NEGATIVE Urine nitrite detection by test strip NEGATIVE NEGATIVE Urine total bilirubin detection by test strip NEGATIVE NEGATIVE Urine urobilinogen measurement by automated test strip (mass/volume) NORMAL NORMAL Urine leukocyte esterase detection by dipstick 1+ NEGATIVE Automated urine sediment erythrocyte count by microscopy (number/high power field) NONE NRG Automated urine sediment leukocyte count by microscopy (number/high power field ) [HPF] NRG Bacteria detection in urine sediment by light microscopy FEW NRG Squamous epithelial cells detection in urine sediment by light microscopy 10-25 NRG Crystals detection in urine sediment by light microscopy NONE NRG Casts detection in urine sediment by light microscopy NONE NRG Mucus detection in urine sediment by light microscopy NEGATIVE NRG Complete urinalysis with reflex to culture NO NRG IONIZED CALCIUM (SEND OFF) - 10/30/16 16:47 Blood ionized calcium measurement (mass/volume) 0.93 % 1.16-1.32 Venous blood ionized calcium measurement adjusted to pH 7.4 (moles/volume) 0.93 % 1.16-1.32 pH measurement 7.40 NRG Encounters ACCT No. Visit Date/Time Discharge Status Pt. Type Provider Facility Loc./Unit Complaint [id number] 03/10/2017 12:01:00 03/10/2017 23:59:59 CLS Outpatient KIYA KEATING [facility] RAD CHRONIC SINUSITIS [id number] 10/30/2016 15:56:00 10/30/2016 17:34:00 DIS Emergency MERRILL VALENCIA APRN [facility] ER BODY TINGLING, LOW FEVER, STIFFNESS [id number] 10/27/2016 06:11:00 10/28/2016 11:20:00 DIS Outpatient TESFAYE STERLING MD [facility] SDC NODULES [id number] 10/21/2016 09:00:00 10/21/2016 16:00:00 DIS Outpatient TESFAYE STERLING MD [facility] PREOP NODULES [id number] 09/15/2016 08:40:00 09/15/2016 23:59:59 CLS Outpatient ASHER CALVIN, TESFAYE Nuñez [facility] RAD THYROID RT NODULE [id number] 09/02/2016 10:20:00 09/02/2016 23:59:59 CLS Outpatient TESFAYE STERLING MD [facility] RAD 6 MONTH THYROID NODULE CHECK [id number] 12/23/2015 08:16:00 12/23/2015 23:59:59 CLS Outpatient KIYA KEATING [facility] RAD ENLARGED THYROID [id number] 11/19/2014 13:31:00 11/19/2014 23:59:59 CLS Outpatient KIYA KEATING [facility] RAD THYROMEGALY [id number] 09/17/2014 16:15:00 09/17/2014 17:55:00 DIS Outpatient JOSE ENRIQUE LECHUGA DO [facility] WSo CONTRACTIONS [id number] 12/17/2012 20:00:00 12/20/2012 14:30:00 DIS Inpatient IZZY LACKEY DO [facility] WS INDUCTION [id number] 09/30/2014 10:31:00 ACT Inpatient JOSE ENRIQUE LECHUGA DO [facility] LDRP INDUCTION
[2018-04-02 23:05] LABS: BASOPHILS % (AUTO) 0 % (0-10); EOSINOPHILS # (AUTO) 0.1 10^3/uL (0.0-0.3); EOSINOPHILS % (AUTO) 1 % (0-10); HEMATOCRIT 39 % (35-52); HEMOGLOBIN 13.9 G/DL (11.5-16.0); LYMPHOCYTES # (AUTO) 3.3 X 10^3 (1.0-4.0); LYMPHOCYTES % (AUTO) 24 % (12-44); MEAN CORPUSCULAR HEMOGLOBIN 32 PG (25-34); MEAN CORPUSCULAR HGB CONC 35 G/DL (32-36); MEAN CORPUSCULAR VOLUME 90 FL (80-99); MEAN PLATELET VOLUME 10.8 FL (7.4-10.4); MONOCYTES # (AUTO) 1.2 X 10^3 (0.0-1.0); MONOCYTES % (AUTO) 9 % (0-12); NEUTROPHILS # (AUTO) 8.9 X 10^3 (1.8-7.8); NEUTROPHILS % (AUTO) 66 % (42-75); PLATELET COUNT 224 10^3/uL (130-400); RED BLOOD COUNT 4.39 10^6/uL (4.35-5.85); RED CELL DISTRIBUTION WIDTH 13.1 % (10.0-14.5); WHITE BLOOD COUNT 13.5 10^3/uL (4.3-11.0)
[2018-04-02 23:06] LABS: BILIRUBIN,URINE NEGATIVE (NEGATIVE); CLARITY,URINE SLIGHTLY CLOUDY; COLOR,URINE YELLOW; GLUCOSE, URINE (UA) NEGATIVE (NEGATIVE); KETONES,URINE NEGATIVE (NEGATIVE); LEUKOCYTE ESTERASE ,URINE 3+ (NEGATIVE); NITRITE,URINE NEGATIVE (NEGATIVE); PH,URINE 8 (5-9); PROTEIN,URINE 1+ (NEGATIVE); UROBILINOGEN,URINE NORMAL (NORMAL)
[2018-04-02 23:14] LABS: BACTERIA,URINE MODERATE /HPF; RBC,URINE 0-2 /HPF; SQUAMOUS EPITHELIAL CELL,UR >50 /HPF
[2018-04-02 23:25] LABS: ALANINE AMINOTRANSFERASE 54 U/L (0-55); ALBUMIN 4.4 GM/DL (3.2-4.5); ALKALINE PHOSPHATASE 53 U/L (40-136); AMYLASE 58 U/L (25-125); BILIRUBIN,TOTAL 0.4 MG/DL (0.1-1.0); BUN/CREATININE RATIO 11; CALCIUM 9.2 MG/DL (8.5-10.1); CARBON DIOXIDE 22 MMOL/L (21-32); CHLORIDE 103 MMOL/L (98-107); CREATININE SERUM 0.85 MG/DL (0.60-1.30); GFR ESTIMATED > 60; GLUCOSE 111 MG/DL (70-105); LIPASE 21 U/L (8-78); POTASSIUM 3.9 MMOL/L (3.6-5.0); SODIUM 138 MMOL/L (135-145); TOTAL PROTEIN 7.8 GM/DL (6.4-8.2)
[2018-04-02] MEDS ORDERED: KETOROLAC 30 MG/ML VIAL IVP STA (23:30)
[2018-04-02] MEDS ORDERED: LACTATED RINGERS 1,000 ML IV ONE ×2 (23:30→23:53)
[2018-04-02] MEDS ORDERED: IOHEXOL 350 MG/ML 100 ML (OMNIPAQUE 350) VIAL IV ONE (23:45)
[2018-04-02] MEDS ORDERED: NS 250 ML (IVPB) BAG IV ONE (23:45)
[2018-04-02] MEDS ORDERED: KETOROLAC 30 MG/ML VIAL ONE (23:53)
[2018-04-03 00:10] VITALS: BP 149/99
[2018-04-03] MEDS ORDERED: LEVOFLOXACIN 500 MG TAB (LEVAQUIN) PO STA (00:24)
[2018-04-03] MEDS ORDERED: LEVO500T2 PO (00:28)
[2018-04-03] MEDS ORDERED: TRAM-42 PO (00:28)
--- NOTE | 2018-04-03 00:28 | ED Abdominal Pain ---
General Chief Complaint: Abdominal/GI Problems Stated Complaint: ABD PAIN Nursing Triage Note: pt c/o left lower abd pain starting this morning et worsening throughout the day. c/o nausea. no vomiting or diarrhea. fever 101.6 this evening Sepsis Screen: Possible Sepsis Risk Source of Information: Patient Exam Limitations: No Limitations History of Present Illness Date Seen by Provider: Apr 02, 2018 Time Seen by Provider: 22:55 Initial Comments PT ARRIVES VIA POV FROM HOME C/O SUPRAPUBIC AND LLQ PAIN SINCE THIS AM, WORSE SINCE NOON. BEGAN RUNNING FEVER OF 101.6 AT 1730 TODAY TOOK 2 TYLENOL AT NOON AND AGAIN AT 1700 + NAUSEA, NO VOMITING. HAD NORMAL BM THIS AM NO URINARY SYMPTOMS PAIN INCREASES WITH WALKING AND MOVEMENTS. LMP UNKNOWN--HAS IUD IN PLACE. PCP: DR. KEATING. HAD ROUTINE EXAM IN LAST MONTH MANAGER RISK MANAGEMENT: DR. LECHUGA, HAD ROUTINE WELL WOMAN EXAM ON Tuesday03/29/18 Allergies and Home Medications Allergies Coded Allergies: latex (Verified Allergy, Mild, 10/22/16) Swelling Home Medications Calcium Carbonate 500 Mg Tablet, 1,000 MG PO Q6H Prescribed by: MERRILL VALENCIA on 10/30/16 1728 Cholecalciferol (Vitamin D3) 50,000 Unit Capsule, 50,000 UNIT PO Q TUESDAY, ( Reported) Cyanocobalamin 1,000 Mcg/Ml Inj, 1,000 MCG IJ WEEKLY, (Reported) Cyclobenzaprine HCl 10 Mg Tablet, 10 MG PO HS, (Reported) Hydrocodone Bit/Acetaminophen 1 Each Tablet, 1-2 TAB PO 4-6HR PRN for PAIN Prescribed by: TESFAYE STERLING on 10/27/16 1007 Levocetirizine Dihydrochloride 5 Mg Tablet, 5 MG PO DAILY, (Reported) Levofloxacin 500 Mg Tablet, 500 MG PO DAILY Prescribed by: AKASH LADD on 04/03/18 0028 Levothyroxine Sodium 125 Mcg Tablet, 125 MCG PO DAILY Prescribed by: TESFAYE STERLING on 10/27/16 1008 Metformin HCl 500 Mg Tab.er.24, 500 MG PO DAILY, (Reported) Sertraline HCl 50 Mg Tablet, 50 MG PO DAILY, (Reported) Spironolactone 50 Mg Tablet, 50-100 MG PO DAILY, (Reported) TAKES 1-2 OF A (50 MG) TABLET Tramadol HCl 50 Mg Tablet, 50 MG PO Q4H Prescribed by: AKASH LADD on 04/03/18 0028 Patient Home Medication List Home Medication List Reviewed: Yes Review of Systems Constitutional: see HPI, fever Respiratory: No Symptoms Reported Cardiovascular: No Symptoms Reported Gastrointestinal: See HPI, Abdominal Pain; Denies Constipated, Denies Diarrhea ; Nausea; Denies Vomiting Genitourinary: No Symptoms Reported Musculoskeletal: no symptoms reported Skin: no symptoms reported Psychiatric/Neurological: No Symptoms Reported Endocrine: No Symptoms Reported Hematologic/Lymphatic: No Symptoms Reported Past Vkergnj-[id number]-Xhqrnb Hx Patient Social History Alcohol Use: Occasionally Uses Recreational Drug Use: No Smoking Status: Never a Smoker Recent Foreign Travel: No Contact w/Someone Who Travel: No Recent Infectious Disease Expo: No Recent Hopitalizations: No Immunizations Up To Date Tetanus Booster (TDap): More than 5yrs PED Vaccines UTD: Yes Date of Pneumonia Vaccine: Aug 23, 2012 Date of Influenza Vaccine: December 20, 2012 Seasonal Allergies Seasonal Allergies: Yes Past Medical History Surgeries: Yes (BILATERAL CARPAL TUNNEL ) Appendectomy, Orthopedic, Thyroidectomy Respiratory: No Cardiac: No Neurological: Yes Headaches /Migraines Reproductive Disorders: No Female Reproductive Disorders: Menstrual Problems, Polycystic Ovarian Dis 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 Sexually Transmitted Disease: No HIV/AIDS: No Genitourinary: Yes Bladder Infection Gastrointestinal: No Musculoskeletal: No Endocrine: Yes (S/P THYROIDECTOMY) Hypothyroidsim Loss of Vision: Denies Hearing Impairment: Denies Cancer: No Psychosocial: No Integumentary: No Blood Disorders: No Adverse Reaction/Blood Tranf: No (N/A) Family Medical History Hypertension (pt's father) No Family History of: Diabetes mellitus (pt's mother, grandparents) Diabetes, Hypertension Physical Exam Vital Signs Vital Signs - First Documented 04/02/18 22:23 Temp 100.1 Pulse 105 Resp 18 B/P (MAP) 117/75 (89) Pulse Ox 100 O2 Delivery Room Air Capillary Refill : Less Than 3 Seconds Height/Weight/BMI Height: 5'3.00" Weight: 230lbs. 0.0oz. 104.439985ox; 38.1 BMI Method:Stated General Appearance: WD/WN, no apparent distress Neck: normal inspection Respiratory: normal breath sounds, no respiratory distress, no accessory muscle use Cardiovascular: regular rate, rhythm, no murmur Gastrointestinal: normal bowel sounds, soft, no organomegaly, no pulsatile mass ; No distended, No guarding, No rebound; tenderness (MILD RLQ TENDERNESS, MODERATE SUPRAPUBIC AND LLQ TENDERNESS. 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, no motor/sensory deficits, alert, normal mood/affect, oriented x 3 Skin: normal color, warm/dry; No rash Progress/Results/Core Measures Results/Orders Lab Results Laboratory Tests Test 04/02/18 22:46 04/02/18 22:50 Range/Units Urine Color YELLOW Urine Clarity SLIGHTLY CLOUDY Urine pH 8 5-9 Urine Specific Lenore 1.015 L 1.016-1.022 Urine Protein 1+ H NEGATIVE Urine Glucose (UA) NEGATIVE NEGATIVE Urine Ketones NEGATIVE NEGATIVE Urine Nitrite NEGATIVE NEGATIVE Urine Bilirubin NEGATIVE NEGATIVE Urine Urobilinogen NORMAL NORMAL MG/DL Urine Leukocyte Esterase 3+ H NEGATIVE Urine RBC (Auto) 1+ H NEGATIVE Urine RBC 0-2 /HPF Urine WBC 10-25 H /HPF Urine Squamous Epithelial Cells >50 H /HPF Urine Crystals NONE /LPF Urine Bacteria MODERATE H /HPF Urine Casts NONE /LPF Urine Mucus NEGATIVE /LPF Urine Culture Indicated YES Urine Test NEGATIVE NEGATIVE White Blood Count 13.5 H 4.3-11.0 10^3/uL Red Blood Count 4.39 4.35-5.85 10^6/uL Hemoglobin 13.9 11.5-16.0 G/DL Hematocrit 39 35-52 % Mean Corpuscular Volume 90 80-99 FL Mean Corpuscular Hemoglobin 32 25-34 PG Mean Corpuscular Hemoglobin Concent 35 32-36 G/DL Red Cell Distribution Width 13.1 10.0-14.5 % Platelet Count 224 130-400 10^3/uL Mean Platelet Volume 10.8 H 7.4-10.4 FL Neutrophils (%) (Auto) 66 42-75 % Lymphocytes (%) (Auto) 24 12-44 % Monocytes (%) (Auto) 9 0-12 % Eosinophils (%) (Auto) 1 0-10 % Basophils (%) (Auto) 0 0-10 % Neutrophils # (Auto) 8.9 H 1.8-7.8 X 10^3 Lymphocytes # (Auto) 3.3 1.0-4.0 X 10^3 Monocytes # (Auto) 1.2 H 0.0-1.0 X 10^3 Eosinophils # (Auto) 0.1 0.0-0.3 10^3/uL Basophils # (Auto) 0.0 0.0-0.1 10^3/uL Sodium Level 138 135-145 MMOL/L Potassium Level 3.9 3.6-5.0 MMOL/L Chloride Level 103 98-107 MMOL/L Carbon Dioxide Level 22 21-32 MMOL/L Anion Gap 13 5-14 MMOL/L Blood Urea Nitrogen 9 7-18 MG/DL Creatinine 0.85 0.60-1.30 MG/DL Estimat Glomerular Filtration Rate > 60 BUN/Creatinine Ratio 11 Glucose Level 111 H 70-105 MG/DL Calcium Level 9.2 8.5-10.1 MG/DL Corrected Calcium 8.9 8.5-10.1 MG/DL Total Bilirubin 0.4 0.1-1.0 MG/DL Aspartate Amino Transf (AST/SGOT) 25 5-34 U/L Alanine Aminotransferase (ALT/SGPT) 54 0-55 U/L Alkaline Phosphatase 53 40-136 U/L Total Protein 7.8 6.4-8.2 GM/DL Albumin 4.4 3.2-4.5 GM/DL Amylase Level 58 25-125 U/L Lipase 21 8-78 U/L My Orders Orders - AKASH LADD DO Saline Lock/Iv-Start (04/02/18 22:58) Urine Bedside (04/02/18 22:58) Amylase (04/02/18 22:58) Cbc With Automated Diff (04/02/18 22:58) Comprehensive Metabolic Panel (04/02/18 22:58) Lipase (04/02/18 22:58) Ua Culture If Indicated (04/02/18 22:58) Urine Culture (04/02/18 22:46) Hcg,Qualitative Urine (04/02/18 23:25) Ketorolac Injection (Toradol Injection) (04/02/18 23:30) Saline Lock/Iv-Start (04/02/18 23:30) Lactated Ringers (Lr 1000 Ml Iv Solution (04/02/18 23:30) Iohexol Injection (Omnipaque 350 Mg/Ml 1 (04/02/18 23:45) Ns (Ivpb) (Sodium Chloride 0.9%) (04/02/18 23:45) Ct Abdomen/Pelvis W (04/03/18 00:01) Ceftriaxone Injection (Rocephin Injectio (04/03/18 00:30) Levofloxacin Tablet (Levaquin Tablet) (04/03/18 00:24) Rx-Tramadol Hcl (Rx-Ultram) (04/03/18 00:29) Ketorolac Injection (Toradol Injection) (04/02/18 23:53) Lactated Ringers (Lr 1000 Ml Iv Solution (04/02/18 23:53) Medications Given in ED Current Medications Medications Dose Ordered Sig/Cadence Route Start Time Stop Time Status Last Admin Dose Admin Ceftriaxone Sodium 1000 mg/ Sodium Chloride 50 ml @ 100 mls/hr ONCE ONCE IV 04/03/18 00:30 04/03/18 00:59 DC 04/03/18 00:30 100 MLS/HR Iohexol 100 ml ONCE ONCE IV 04/02/18 23:45 04/02/18 23:46 DC 04/02/18 23:43 100 ML Lactated Ringer's 1,000 ml @ 0 mls/hr Q0M ONCE IV 04/02/18 23:30 04/03/18 00:33 DC 04/02/18 23:59 0 MLS/HR Sodium Chloride 250 ml ONCE ONCE IV 04/02/18 23:45 04/02/18 23:46 DC 04/02/18 23:43 80 ML Vital Signs/I&O 04/02/18 04/03/18 22:23 00:10 Temp 100.1 97.0 Pulse 105 96 Resp 18 20 B/P (MAP) 117/75 (89) 149/99 Pulse Ox 100 97 O2 Delivery Room Air Room Air Blood Pressure Mean: 89 Progress Progress Note : Progress Note PAIN AND NAUSEA EASED AT DISMISSAL Diagnostic Imaging Comments CT ABDOMEN/PELVIS--NO ACUTE PROCESS, PER [facility] VIA FAX @ 2205 Reviewed: Reviewed by Me Departure Impression Primary Impression: Urinary tract infection Disposition: HOME, SELF-CARE Condition: Improved Departure-Patient Inst. Referrals: KIYA KEATING, DNP (PCP/Family) Primary Care Physician Patient Instructions: Urinary Tract Infection, Adult (DC) Add. Discharge Instructions: LOTS OF CLEAR LIQUIDS--NO COFFEE, POP OR TEA ALTERNATE TYLENOL AND MOTRIN EVERY 2-3 HOURS NEEDED FOR PAIN OR FEVER FOLLOW UP WITH DR. BRITT IN 2-3 DAYS FOR FURTHER CARE RETURN TO ER IF WORSE All discharge instructions reviewed with patient and/or family. Voiced understanding. Scripts Tramadol HCl (Ultram) 50 Mg Tablet 50 MG PO Q4H, #20 TAB Prov: AKASH LADD DO 04/03/18 Levofloxacin (Levaquin) 500 Mg Tablet 500 MG PO DAILY for INFECTION, #10 TAB Prov: AKASH LADD DO 04/03/18 AKASH LADD DO Apr 03, 2018 00:28
[2018-04-03] MEDS ORDERED: RX-TRAMADOL 50 MG (ULTRAM) TAB PPK#4 PO STA (00:29)
[2018-04-03] MEDS ORDERED: cefTRIAXone FOR IV USE 1,000 MG in NS (IVPB) 50 ML IV ONE (00:30)
--- NOTE | 2018-04-03 11:55 | Diagnostic Imaging Report ---
PROCEDURE: CT abdomen and pelvis with contrast. TECHNIQUE: Multiple contiguous axial images were obtained through the abdomen and pelvis after administration of intravenous contrast. INDICATION: Left-sided abdominal pain. No prior studies are available for comparison. The lung bases are clear. The liver demonstrates mild generalized low density suggestive of hepatic steatosis. No liver mass is seen. Gallbladder is unremarkable. Pancreas and spleen are unremarkable. No adrenal mass is seen. No renal calculi or hydronephrosis is identified. Aorta is non-aneurysmal. Visualized bowel loops are non-dilated. Uterus and ovaries are unremarkable. There is an IUD that appears to be in the lower uterine segment of the uterus. Bladder is unremarkable. There is no free fluid identified. IMPRESSION: 1. Hepatic steatosis. 2. No acute feature in the abdomen and pelvis. Note is made that the patient's IUD in the uterus does appear to be somewhat low-lying in the lower uterine segment. Dictated by: Dictated on workstation # [id number]
== END 2018-04-03 01:02 | disposition home or self-care (01) ==
LOC: EDUNIT# 21:56 → ER 21:57
DX: N39.0 Urinary tract infection, site not specified (principal); G43.909 Migraine, unspecified, not intractable, without status migrainosus; E03.9 Hypothyroidism, unspecified; Z91.040 Latex allergy status; Z79.84 Long term (current) use of oral hypoglycemic drugs; Z90.89 Acquired absence of other organs; Z90.49 Acquired absence of other specified parts of digestive tract
CPT/HCPCS: 36415; 74177; 80053; 81000; 82150; 83690; 84703; 85025; 87088

== ENCOUNTER → 2018-08-27 | Outpatient (CLI) | payer BC ==
[~2018-08-27] MED LIST changes: +LEVO500T2 PO; +METF-397 PO; -METF500T5 PO; +TRAM-42 PO
== END ==
LOC: LABNPT 14:24
PROVIDERS: ATTEND Nurse Practitioner Family
DX: N30.00 Acute cystitis without hematuria (principal)
CPT/HCPCS: 87088

== ENCOUNTER → 2019-08-01 | Outpatient (CLI) | payer BC ==
[~2019-08-01] MED LIST changes: -CALC500T3 PO; +CALC500T64 PO
--- NOTE | 2019-08-01 16:22 | Diagnostic Imaging Report ---
EXAMINATION: Chest, two views. HISTORY: Pneumonia. COMPARISON: None available. FINDINGS: Linear opacities in the left lung base are mostly in keeping with atelectasis. No pleural effusion or pneumothorax. No edema. Heart size is normal. IMPRESSION: 1. Linear opacities in the left base have a morphology most suggestive of atelectasis, pneumonia considered less likely. Dictated by: Dictated on workstation # [id number]
== END ==
LOC: RAD 15:50
PROVIDERS: ATTEND Nurse Practitioner Family
DX: J18.1 Lobar pneumonia, unspecified organism (principal); R91.8 Other nonspecific abnormal finding of lung field
CPT/HCPCS: 71046

== ENCOUNTER → 2020-05-19 | Outpatient (CLI) | payer BC ==
--- NOTE | 2020-05-19 17:13 | Diagnostic Imaging Report ---
INDICATION: Status post thyroidectomy 2 years ago. Patient complains of difficulty swallowing. FINDINGS: Sonographic interrogation of the thyroid bed was performed. No residual thyroid tissue is seen. No mass in the thyroid bed is identified. No fluid collection is detected. IMPRESSION: Status post thyroidectomy. No residual or recurrent thyroid tissue or mass is detected. Dictated by: Dictated on workstation # [id number]
== END ==
LOC: RAD 15:45
PROVIDERS: ATTEND Nurse Practitioner Family
DX: E01.0 Iodine-deficiency related diffuse (endemic) goiter (principal); Z90.49 Acquired absence of other specified parts of digestive tract
CPT/HCPCS: 76536

== ENCOUNTER → 2020-06-09 | Outpatient (CLI) | payer BC ==
--- NOTE | 2020-06-09 10:02 | Diagnostic Imaging Report ---
PROCEDURE: US Gallbladder. TECHNIQUE: Multiple Real-time grayscale images were obtained over the right upper quadrant in various projections. INDICATION: Abdominal pain and elevated liver function tests. FINDINGS: The liver is enlarged at 21.7 cm. No discrete liver mass is detected. The portal vein is patent and shows normal direction of flow. The gallbladder is without stones or sludge. No wall thickening or biliary ductal dilatation is seen. The pancreas is unremarkable. The aorta is nonaneurysmal. The IVC is patent. The Right kidney is without calculi or hydronephrosis. There is no ascites. IMPRESSION: 1. Mild hepatomegaly. 2. No evidence of cholelithiasis or acute cholecystitis. Dictated by: Dictated on workstation # [id number]
== END ==
LOC: RAD 07:00
PROVIDERS: ATTEND Internal Medicine
DX: R10.13 Epigastric pain (principal); R79.89 Other specified abnormal findings of blood chemistry; R16.0 Hepatomegaly, not elsewhere classified
CPT/HCPCS: 76705